=== PATIENT | female | born 1975 | race Caucasian/White ===

== ENCOUNTER → 2016-12-28 | Outpatient (CLI) | payer BC ==
[~2016-12-28] MED LIST: ACETAMINOPHEN PO; ATIVAN PO; AUGMENTIN875 MG PO; CERTAGEN PO; ENALAPRIL/HCTZ1 TA3 PO; ETODOLAC500 MG PO; FAMOTIDINE20 M1 PO; FISH OIL 1,0001 CAP PO; FLEXERIL10 MG PO; FLUOXETINE HCL40 M1 PO; K-DUR20 ME1 PO; LIORESAL10 MG PO; LORAZEPAM1 MG PO; METHYLPREDNISOLO4 MG PO; PHENERGAN DM1 ML PO; PHENERGAN PO; PRAVASTATIN SOD40 MG PO; PROZAC PO; RAPIFLUX20 M1; TYLENOL #3 PO; VASERETIC 10-251 TAB PO; VASERETIC 5-12.1 TAB PO; VASOTEC PO; VICODIN 5/500 T1 TAB PO; VOLTAREN50 MG PO; VOLTAREN75 MG PO; ZESTORETIC PO; ZITHROMAX1 G/PKT PO; ZYRTEC PO
--- NOTE | ~2016-12-28 | CR63 ---
[facility] A Service of [facility] RADIOLOGY TEXT RESULTS PATIENT: ZEN JIMENEZ LOCATION: [facility] : 71 UNIT #: [id number] AGE: [address]: Ab Garber MD SEX: F ORDER DR: [id number] [facility] [address]. [place], [place] [address] [id number] O MR#: [id number] Acc #: [id number] NAME: ZEN JIMENEZ. : 1975 SEX: F STUDY DATE/TIME: 12/28/2016 9:57 UNIT: [facility] ROOM: STUDY DESCRIPTION: CR Chest 2 View Attending Physician: Ab Garber M.D. Referring Physician: Ab Garber M.D. Ordering Physician: Ab Garber M.D. Primary Care Physician: Trever Bhatia M.D. MEDICAL IMAGING REPORT This report is preliminary unless electronic signature is present EXAM PA and lateral chest. INDICATIONS Preop right knee surgery for chondromalacia. Also, history of mitral valve prolapse, hypertension, and hyperlipidemia. COMPARISON 01/14/2016. FINDINGS PA and lateral examination of the chest upright shows a good expansion of the parenchyma with a normal distribution of the pulmonary vascularity. There is no indication of congestion, effusion, infiltrate, tumor, or nodular density. The pleural reflections and diaphragmatic contours are normal. The cardiac silhouette and mediastinal anatomy is within normal limits. IMPRESSION Normal chest. Dictated by... Terence Pacheco M.D. THIS IS AN ELECTRONICALLY VERIFIED REPORT Terence Pacheco M.D. at 12/28/2016 4:54 PM MERLIN/ghanshyam TD: 12/28/2016 13:18 JOB #: [id number] MEDICAL IMAGING REPORT [facility] A Service of [facility] & [facility] RADIOLOGY TEXT RESULTS PATIENT: ZEN JIMENEZ LOCATION: [facility] : 71 UNIT #: [id number] AGE: [address]: Ab Garber MD SEX: F ORDER DR: FINESSE
--- NOTE | ~2016-12-28 | EKG ---
PATIENT: ZEN JIMENEZ UNIT #: [id number] Ventricular Rate: 89 BPM Atrial Rate: 89 BPM P-R Interval: 148 ms QRS Duration: 76 ms Q-T Interval: 400 ms QTC Calculation(Bezet): 486 ms P [facility]: 124 degrees Calculated R [facility]: 63 degrees Calculated T [facility]: 55 degrees Diagnosis Line: Unusual P axis, possible ectopic atrial rhythm Diagnosis Line: Prolonged QT Diagnosis Line: Abnormal ECG Diagnosis Line: When compared with ECG of 13-JUN-2016 14:36, Diagnosis Line: Ectopic atrial rhythm has replaced Sinus rhythm Diagnosis Line: Nonspecific T wave abnormality no longer evident Diagnosis Line: in Inferior leads Diagnosis Line: Confirmed by CHRISTOPHER PERES MD ([id number]) on Diagnosis Line: 12/28/2016 4:15:38 PM INTERPRETING MD: JA CAMARGO
[2016-12-28 09:46] LABS: HEMATOCRIT 39.4 % (35.0-45.0); HEMOGLOBIN 13.4 gm/dL (12.0-16.0); MEAN CELL VOLUME 93.9 FL (83-96); MEAN CORPUSCULAR HEMOGLOBIN 31.9 PG (28-34); MEAN CORPUSCULAR HGB CONC 33.9 g/dL (30-36); MEAN PLATELET VOLUME 8.7 FL (6.5-11.5); RED BLOOD COUNT 4.2 X10e (3.90-5.30); RED CELL DISTRIBUTION WIDTH 12.3 % (11.0-15.5)
[2016-12-28 09:55] LABS: BLOOD UREA NITROGEN 13 mg/dL (9-23); BUN/CREATININE RATIO 21.66; CALCIUM SERUM 9.1 mg/dL (8.4-10.2); CARBON DIOXIDE 27 mmol/L (22-31); CHLORIDE 102 mmol/L (100-111); CREATININE SERUM 0.6 mg/dL (0.6-1.4); GLOM FILT RATE Estimated ABOVE60 mL/min (>60); GLUCOSE FASTING 103 mg/dL (70-110); POTASSIUM 3.9 mmol/L (3.5-5.1); SODIUM 137 mmol/L (135-145)
[2016-12-28 10:04] LABS: URINE APPEARANCE CLEAR; URINE BILIRUBIN NEG (NEG); URINE BLOOD TRACE (NEG); URINE COLOR YELLOW; URINE GLUCOSE NEG (NEG); URINE KETONE NEG (NEG); URINE LEUKOCYTE ESTERASE TRACE (NEG); URINE NITRATE NEG (NEG); URINE PH 8.5 (5-8); URINE PROTEIN NEG (NEG); URINE SPECIFIC GRAVITY 1.022 (1.003-1.035)
[2016-12-28 10:05] LABS: URINE BACTERIA AUWI NEG (NEGATIVE); URINE SQUAMOUS EPITHELIAL CELL OCC /[HPF]
[2016-12-28 10:07] LABS: CULTURE INDICATED? NO; URINE SOURCE CLEAN CATCH
== END | disposition home or self-care (01) ==
LOC: CAMB 08:20
PROVIDERS: Orthopaedic Surgery
DX: Z01.818 Encounter for other preprocedural examination (principal); E78.5 Hyperlipidemia, unspecified; I10 Essential (primary) hypertension
CPT/HCPCS: 36415; 71020; 80048; 81003; 85027; 93005

== ENCOUNTER → 2017-01-06 | Day surgery (SDC) | payer BC ==
--- NOTE | ~2017-01-06 | OR ---
Unit #: [id number] #: [id number] Patient: ZEN JIMENEZ [id number] [address] [address] [id number] O MR#: [id number] NAME: ZEN JIMENEZ. ROOM: Date of Procedure: 01/06/2017 Admission Date: 01/06/2017 Surgeon: Ab Garber M.D. : 1975 Attending Physician: Ab Garber M.D. Primary Care Physician: Trever Bhatia M.D. OPERATIVE REPORT PREOPERATIVE DIAGNOSIS Plica syndrome, right knee. POSTOPERATIVE DIAGNOSIS Plica syndrome, right knee. PROCEDURE PERFORMED Arthroscopy with excision of plica. ASSISTANTS None. ANESTHESIA General. ESTIMATED BLOOD LOSS Less than 25 mL. DESCRIPTION OF PROCEDURE The patient was brought to the operating room, given a general anesthetic. The tourniquet was positioned. The leg was exsanguinated. Tourniquet was inflated to 300, and placed in a leg mari, and prepped and draped. The arthroscope was introduced through the inferolateral portal. Suprapatellar pouch was free of debris. There was found to be some chondromalacia in the patella, but no full-thickness loss. The patient then had medial and lateral compartments visualized and there was no meniscal tear present. There was a medial plica present, this was removed using the 3.5 incisor blade. After this was done, the patient then had the dressing applied and the patient's tourniquet was released and general anesthetic reversed and the patient was transferred to the recovery room. Dictated by... Sandra Hayward/husam TD: 01/07/2017 14:42 JOB #: [id number] Unit #: [id number] #: [id number] Patient: ZEN JIMENEZ OPERATIVE REPORT X Ab Garber MD PROCEDURE OPERATIVE NOTE
== END | disposition home or self-care (01) ==
LOC: CSUR 05:56
DX: M67.51 Plica syndrome, right knee (principal); I34.1 Nonrheumatic mitral (valve) prolapse; I10 Essential (primary) hypertension; Z88.8 Allergy status to other drugs, medicaments and biological substances; Z87.19 Personal history of other diseases of the digestive system; Z98.84 Bariatric surgery status; Z98.51 Tubal ligation status; Z98.818 Other dental procedure status; Z79.899 Other long term (current) drug therapy; Z88.5 Allergy status to narcotic agent
CPT/HCPCS: 84703; J1100; J2250; J2405; J3010

== ENCOUNTER → 2017-06-16 | Day surgery (SDC) | payer BC ==
--- NOTE | ~2017-06-16 | OR ---
Unit #: [id number] #: [id number] Patient: ZEN JIMENEZ [id number] [address] [place], [place] [address] [id number] O MR#: [id number] NAME: ZEN JIMENEZ. ROOM: Date of Procedure: 06/16/2017 Admission Date: 06/16/2017 Surgeon: Jeffrey Sanchez M.D. : 1975 Attending Physician: Jeffrey Sanchez M.D. Primary Care Physician: Trever Bhatia M.D. OPERATIVE REPORT PREOPERATIVE DIAGNOSES Neck pain, cervical facet disease. POSTOPERATIVE DIAGNOSES Neck pain, cervical facet disease. PROCEDURE PERFORMED Cervical facet injection x2 levels with intravenous sedation and fluoroscopic guidance for needle localization. INDICATIONS FOR PROCEDURE The patient is a 42-year-old female, initially seen last year with continued neck pain. She had cervical epidural steroid injections done, which helped with the radicular pain she was having at that point which was felt to be neck pain, so a cervical facet injection was done bilaterally at the C3-C4 and C5-C6 levels. Two injections were done at each level about a month apart. The patient did very well until about 3 weeks ago once she had a return of the same pain in her neck or upper extremity, and hand pain is still improved. Based on history, pathology, symptomatology, response to treatment, we are going to proceed repeat bilateral C3-C4 and C5-C6 facet injections. DESCRIPTION OF PROCEDURE The patient was placed in the seated position. Standard monitors were applied. 2 mg of Versed were given for sedation and anxiolysis. Sterile prep and drape then of the cervical area was performed. The skin then overlying the right-sided C3-C4 and C5-C6 facet joints were localized with 1% lidocaine. A 22-gauge Quincke point spinal needle was advanced at these levels using fluoroscopic guidance to bring the needle tip to within the edge of the facet joints. After this was confirmed, a dose of 1 mL of a mixture of 80 mg of Depo-Medrol and 1 mL of 0.25% bupivacaine were deposited. This was done at both levels. The needles were flushed and removed. The exact same procedure was then repeated on the left at the C3-C4 and C5-C6 levels. Again, there was no complaints of pain or paresthesia. The same dosing of 1 mL of a mixture of 80 mg of Depo-Medrol and 1 mL of 0.25% bupivacaine was used. The needles were flushed and removed. Dictated by... Jeffrey Sanchez M.D. Unit #: [id number] #: [id number] Patient: ZEN JIMENEZ LHP/modl TD: 06/16/2017 12:05 JOB #: [id number] OPERATIVE REPORT Page 1 of 1 X Jeffrey Sanchez MD X PROCEDURE OPERATIVE NOTE
== END | disposition home or self-care (01) ==
LOC: CCSC 08:47 → COPS 10:00 → CCSC 10:00
DX: M53.82 Other specified dorsopathies, cervical region (principal); F41.9 Anxiety disorder, unspecified; F32.9 Major depressive disorder, single episode, unspecified; Z88.5 Allergy status to narcotic agent; Z88.8 Allergy status to other drugs, medicaments and biological substances; Z79.899 Other long term (current) drug therapy
CPT/HCPCS: J1040; J2250